=== PATIENT | female | born 1975 | race Caucasian/White ===

== ENCOUNTER 2023-09-13 09:07 | Outpatient (CLI) | payer OTHER, SELFPAY ==
--- NOTE | 2023-09-13 09:15 | CRLHL7_ITS ---
For Patients: As a result of the Century Cures Act, medical imaging exams and procedure reports are released immediately into your electronic medical record. You may view this report before your referring provider. If you have questions, please contact your health care provider. BILATERAL SCREENING MAMMOGRAM WITH COMPUTER-AIDED DETECTION AND TOMOSYNTHESIS TECHNIQUE: CC and MLO views were obtained. These mammographic images have been obtained using full-field digital technique. These mammographic images were interpreted with the benefit of computer-aided detection. Breast Tomosynthesis was used in this interpretation. COMPARISON FILM: 08/22/22, 08/18/21, 07/23/20. FINDINGS: There are scattered areas of fibroglandular density. IMPRESSION: There is no radiographic evidence for malignancy. ASSESSMENT: BI-RADS Category 1: Negative RECOMMENDATION: Routine screening mammogram in 1 year. A lay language report of this examination will be provided to the patient. Emanuel Castano M.D. Diagnostic Radiologist [email or web address] SP/Dictated by: Emanuel Castano MD @ 09/13/2023 10:17:00 AM (Electronically Signed)
== END 2023-09-13 09:08 | disposition home or self-care (01) ==
LOC: MAMMO 09:08
PROVIDERS: Visit Provider Obstetrics & Gynecology
DX: Z12.31 Encounter for screening mammogram for malignant neoplasm of breast (principal)
CPT/HCPCS: 77063; 77067

== ENCOUNTER 2024-12-05 13:20 | Outpatient (CLI) | payer BC, SELFPAY ==
--- NOTE | 2024-12-05 13:40 | CRLHL7_ITS ---
For Patients: As a result of the Century Cures Act, medical imaging exams and procedure reports are released immediately into your electronic medical record. You may view this report before your referring provider. If you have questions, please contact your health care provider. INDICATION: BILATERAL SCREENING MAMMOGRAM, ASYMPTOMATIC 49 Y/O FEMALE COMPARISON: 09/13/2023, 06/23/2022, 06/08/2020 TECHNIQUE: Digital mammogram in CC and MLO projections including computer-aided detection (CAD) and tomosynthesis. BREAST COMPOSITION: There are scattered areas of fibroglandular density. FINDINGS: No suspicious findings. ASSESSMENT: BI-RADS 1 Negative RECOMMENDATION: Annual screening mammogram. A lay language report of this examination will be provided to the patient. Dictated by: Emanuel Castano MD @ 12/08/2024 11:46:15 (Electronically Signed)
== END 2024-12-05 13:21 | disposition home or self-care (01) ==
LOC: MAMMO 13:21
PROVIDERS: PCP Family Medicine; Visit Provider Obstetrics & Gynecology
DX: Z12.31 Encounter for screening mammogram for malignant neoplasm of breast (principal)
CPT/HCPCS: 77063; 77067

== ENCOUNTER 2024-12-25 06:49 | Emergency (ER) | payer BC, SELFPAY ==
--- OUTSIDE RECORDS SUMMARY | 2024-12-25 06:51 | XMS_ITS | Clinical Summary ---
Author Organization [email or web address] Address [address] [place] [id number] Care Team Providers Care Tribal Delegate Name Role Phone Henry Swenson MD Primary Care Provider [phone] Allergies Active Allergy Reactions Criticality Noted Date Comments Ampicillin Hives 05/22/2005 Medications cetirizine (ZYRTEC) 10 mg tablet Take 1 Tablet (10 mg) by mouth once daily. 0 1 Active albuterol HFA 90 mcg/actuation inhalerIndication s:Mild intermittent asthma without complication (HC) Inhale 2 Puffs by mouth every 4 hours if needed for Shortness Of Breath or Wheezing (cough). 18 g 5 Active budesonide-formot Levi 160-4.5 mcg/actuation (160-4.5 mcg each actuation) inhalerIndication s:Mild intermittent asthma without complication (HC) Inhale 2 Puffs by mouth two times daily. 10.2 g 11 5 Active fluticasone (50 mcg per actuation) nasal solution (FLONASE)Indicati ons:Non-seasonal allergic rhinitis, unspecified trigger Inhale 2 Sprays into affected nostril(s) once daily. 48 g 4 5 Active Active Problems Problem Noted Date Diagnosed Date Pap smear for cervical cancer screening 10/11/19 23 Overview (10/10/2022): 1998 Coleman 11/2002 Coleman 05/2022 UNS/HPV negative 08/2022 NIL Plan: pap/hpv due 05/2027 Lactose intolerance 07/27/2020 Depression with anxiety 05/14/2016 Tinnitus of left ear 10/02/2013 ALLERGIES 10/06/2002 Mild intermittent asthma without complication Overview (02/07/2011): Triggered allergies in the fall, exercise and illness Resolved Problems Problem Noted Date Diagnosed Date Resolved Date PMDD (premenstrual dysphoric disorder) 01/29/2009 12/18/2009 Normal delivery 11/29/2007 12/05/2007 Sterilization 11/29/2007 12/05/2007 Supervision of other normal 07/26/2007 12/05/2007 SINUSITIS 07/07/2003 07/21/2003 GENITAL HERPES 06/24/2002 05/21/2006 Overview (05/21/2006): Just initial outbreak in 2004 DEPRESSIVE DISORDER, MAJOR RECUR, UNSPECIFIED 03/14/20 02 01/13/2009 Encounters Date Type Department Care Team Description 12/05/2024 Orders Only [facility] Scanner 1 scan: (1-Ord) [place], 12/05/2024 10/14/2024 Telephone [facility] [address] [place] [address] Henry Swenson MD mammo due from Last 3 Months Immunizations Immunization Administration Dates Next Due AMB Influenza, IIV3 (Age >=3 years)(Flu Clinic Only) 12/30/2008,02/18/2008 COVID-19 vaccine (Moderna 100mcg/0.5mL) PF, MDV 07/01/2020 Hepatitis B, Unspecified 05/11/2000 Influenza A (H1N1), Inactivated 03/02/2009 Influenza A (H1N1), Inactiva ana (Age >=3 Years) 03/02/2009 Influenza, CCIIV3 (Age >=6 M O) (Egg Free) 01/30/2024 Influenza, IIV3 (Age 6-35 mos) 3,02/23/2012,02/07/2011,2009 Influenza, IIV3 (Age >=3 years) 01/25/20 13,02/23/2012,02/07/2011,2008,02/18/2008,02/15/2007,02/13/2006,1 05/07/2004,01/15/2004,01/20/2003, 002 Influenza, IIV4 01/20/2021, 8,01/29/2017,2015,01/05/2014 Influenza, IIV4 (=>6mos) MDV 12/19/2019 Influenza, Injectable, Mdck, Quadrivalent, W/preservative 01/31/2023,02/01/2022 Pneumococcal Conj 20-valent (Prevnar 20) 06/14/2022 Pneumococcal Poly,23-Valent (Pneumovax) 02/01/2000,08/25/1999 Td, Preservative Free (age > = 7 Years) 11/06/2016 Tdap 05/21/2006 Family History Medical History Relation Name Comments Good Health Brother Oldest Good Health Daughter 1 Yeimy Older Good Health Daughter 2 Jessica Second Heart Disease Father Hypertension Father Other Maternal Grandfather drowned Arrhythmia Maternal Grandmother Diabetes Maternal Grandmother late on set Cancer-breast Mother Hypertension Mother Diabetes Paternal Aunt x 2 Two Diabetes Paternal Grandfather Heart attack Paternal Grandfather around 62 Diabetes Paternal Uncle Good Health Sister Second Relation Name Status Comments Brother Alive Daughter 1 Yeimy Alive Daughter 2 Jessica Alive Father Alive Maternal Grandfather (Age ?) Maternal Grandmother Mother Alive Paternal Aunt x 2 Paternal Grandfather (Age 45 yrs ) Paternal Grandmother Paternal Uncle Sister Alive Social History Tobacco Use Types Packs/Day Years Used Date Smoking Tobacco: Former Cigarettes 2 000 - 09/23/1998 Smokeless Tobacco: Never Tobacco Cessation:Counseling Given: Not Answered Alcohol Use Standard Drinks/Week Comments Not Currently 0 (1 standard drink = 0.6 oz pure alcohol) Alcoholic Drinks/day: 0 since 1998. PHQ-2 Answer Date Recorded PHQ-2 TOTAL SCORE 0 07/14/2024 Social Connections Answer Date Recorded Do you often feel lonely or isolated from those around you? 0 03/03/2024 Financial Resource Strain Answer Date R ecorded Difficulty of Paying Living Expenses 3 03/03/2024 Difficulty of Paying Living Expenses Not on file 03/03/2024 Food Insecurity Answer Date Recorded Do you worry your food will run out before you are able to buy more? 1 03/03/2024 Transportation Needs Answer Date Record ed Does lack of transportation keep you from medica l appointments? 1 03/03/2024 Does lack of transportation keep you from work, meetings or getting things that you need? 1 03/03/2024 Housing Stability Answer Date Recorded What is your housing situation today? 1 03/03/2024 Utilities Answer Date Recorded Do you have trouble paying f or utilities (for example, heat, electricity, water, phone)? 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 Not on file Not on fi le Obstetrics History Para Term AB IAB SAB Ectopic Multiple Livin g Live Births 2 2 2 0 0 0 0 0 0 2 2 Date Outcome GA Total Labor Labor/2nd/3rd Weight Sex Type Anes PTL Jossie A1 A5 Name Clin 08/16 Term 40w 0d 5h 00m/ 3.52 kg (7 lb 12 oz) F Vag Living Elissa 11/28 Term 39w 0d 4h 00m/ 3.81 kg (8 lb 6.5 oz) F Vag Living Jessica Last Filed Vital Signs Vital Sign Reading Time Taken Comments Blood Pressure 108/86 07/14/2024 9:32 AM CDT Pulse 75 07/14/2024 9:32 AM CDT Temperature 35.9 C (96.7 F) 06/14/2022 2:02 PM CDT Respiratory Rate 14 07/14/2024 9:32 AM CDT Oxygen Saturation 99% 07/14/2024 9:32 AM CDT Inhaled Oxygen Concentration - - Weight 65.3 kg (144 lb) 07/14/2024 9:32 AM CDT Height 167.6 cm (5' 6) 07/14/2024 9:32 AM CDT Body Mass Index 23.24 07/14/2024 9:32 AM CDT Plan of Treatment Health Maintenance Due Date Last Done Comments Hepatitis B series for 19+ (2 of 3 - 19+ 3-dose series) 06/08/2000 05/11/2000 Influenza Vaccine (#1) 2024 4, 01/31/2023, 02/01/2022, Additional history exists BMI (ht and wt on same day) for age 18+ 07/14/2025 07/14/2024, 06/14/2022, 02/01/2021, Additional history exists Depression screening for age 12+ 07/14/2025 07/14/2024, 07/14/2024, 06/14/2022, Additional history exists Mammogram for age 45-75 12/05/2025 12/06/19 25, 09/13/2023, 08/22/2022, Additional history exists Tetanus booster 11/06/2026 11/06/2016, 05/21/2006 Lipids for age 45-75 06/15/2027 06/14/2022, 05/01/2014, 01/13/2009, Additional history exists Pap test for age 21-65 09/06/2027 , 06/14/2022, 07/04/2017, Additional history exists Colonoscopy through age 75 09/14/2031 09/13/2021 RSV vaccine for adults or (1 - 1-dose 75+ series) 12/03/2050 HIV for age 15-65 Completed 05/24/2007 Hepatitis C screening for age 18-79 Completed 06/14/2022 Pneumococcal series for age 6-49 Aged Out 06/14/2022, 02/01/2000, 08/25/1999 No longer eligible based on patient's age to complete this topic COVID-19 vaccine series Completed 01/30/20 24, 01/31/2023, 02/01/2022, Additional history exists Procedures Procedure Name Priority Date/Time Associated Diagnosis Comments SCAN-MAMMOGRAPHY REPORT 12/05/2024 12:00 AM CDT RECORD KEEPER THIN PREP PAP SCREEN IMAGED Routine 09/05/2022 10:47 AM CDT Cervical cancer screening LC HCV ANTIBODY RFX TO QUANT PCR Routine 06/14/2022 1:55 PM CDT Need for hepatitis C screening test LC LIPID PANEL AND CHOL/HDL RATIO Routine 06/14/2022 1:55 PM CDT Screening for lipid disorders SCAN-COLONOSCOPY 09/13/2021 12:0 0 AM CDT ANTI HIV 1/2 Routine 05/24/2007 2:24 PM LABORATORY TECH Supervision Of Other Normal (Hc) from Last 3 Months or Most Recently Relevant to Health Maintenance Results * SCAN-MAMMOGRAPHY REPORT (12/05/2024 12:00 AM CDT) Anatomical Region Laterality Modality Other us Scanner OTHER Final Result * RECORD KEEPER THIN PREP PAP SCREEN IMAGED (09/05/2022 10:47 AM CDT) Case Report Gynecologic Cytology Report Case: [id number] Authorizing Provider: Henry Swenson MD Collected: 09/05/2022 1047 Ordering Location: [facility] Received: 09/05/2022 1125 First Screen: Shu Gill Specimen: RECORD KEEPER ThinPrep Vial Screening, Cervical 10/10/2022 12:10 PM CDT [facility] INTERPRETATION/ RESULT NEGATIVE FOR INTRAEPITHELIAL LESION OR MALIGNANCY (NIL) (none) 10/10/2022 12:10 PM CDT [facility]-C ENTRAL LABORATORY at 1210 CDT SPECIMEN ADEQUACY Satisfactory for evaluation Endocervical component present 10/10/2022 12:10 PM CDT [id number] [employer]-C ENTRAL LABORATORY HPV REQUEST HPV not requested 2022 12:10 PM CDT [id number] [employer] [facility]-C ENTRAL LABORATORY Date of LMP 08/24/2022 10/10/2022 12:10 PM CDT [facility] ENTRAL LABORATORY Last Pap Date 06/14/22 10/10/2022 12:10 PM CDT [id number]-C ENTRAL LABORATORY Last Pap Result UNS 12:10 PM CDT [id number]-C ENTRAL LABORATORY Abnormal Pap or Coleman Bx in last 5 years No 10/10/2022 12:10 PM CDT [facility]TN LABORATORY Menstrual Status Regular Periods 10/10/2022 12:10 PM CDT [facility] Coleman Bx Done Today No 10/10/2022 12:10 PM CDT [facility] Additional Information None given 10/10/2022 12:10 PM CDT [facility] ENTRAL LABORATORY Comment: Cytology is screened at [facility] - [address], [place] [address] and [facility] - [address], [place] [address] and Laboratory - [address] [place] [address] Interpreted at [facility] - [address] [place] [address] Automated Review Successful 10/10/2022 12:10 PM CDT [facility] Comment:Specimen processed s uccessfully by automated emergency room clerk device, Thin[employer] Imaging System, [employer] Note The pap test is a screening technique, not a diagnostic procedure. It is used primarily to screen for squamous cancers and precursor lesions. Published studies have shown that it is subject to both false negative and false positive results. The pap test should not be used as the sole means to diagnose or exclude pre-malignant and malignant lesions. 10/10/2022 12:10 PM CDT [facility] Other (Cervical) Non-Blood / Unknown 09/05/2022 10:47 AM CDT 09/05/2022 11:25 AM CDT us Henry Swenson MD PATHOLOGY/CYTOLOGY Final Result [facility] [address] [place] [address], [place] * LC LIPID PANEL AND CHOL/HDL RATIO (06/14/2022 1:55 PM CDT) Cholesterol, Total 191 100 - 199 mg/dL 06/16/2022 9:10 AM CDT [facility]) Triglycerides 82 0 - 149 mg/dL 06/16/2022 9:10 AM CDT [facility] ([facility]) HDL Cholesterol 94 >39 mg/dL 9:10 AM CDT [facility] VLDL Cholesterol Guy 15 5 - 40 mg/dL 06/16/2022 9:10 AM CDT [facility] LDL Chol Calc (NIH) 82 0 - 99 mg/dL 06/16/2022 9:10 AM CDT [facility] T. Chol/HDL Ratio 2.0 0.0 - 4.4 ratio 06/16/2022 9:10 AM CDT [facility] ([facility] Comment: T. Chol/HDL Ratio Men Women 1/2 Avg.Risk 3.4 3.3 Avg.Risk 5.0 4.4 2X Avg.Risk 9.6 7.1 3X Avg.Risk 23.4 11.0 Blood BLOOD SPECIMEN / Unknown Venipuncture / Unknown 06/14/2022 1:55 PM CDT 06/14/2022 1:55 PM CDT Narrative [facility] ([facility]) - 06/16/2022 9:10 AM CDT Performed at: [address] [place] [id number] Platform Software Engineer: Markos Whitten MD, Phone: [phone] us Henry Swenson MD SEND OUTS Final Res ult [facility] ([facility]) [facility] [place] [address], * LC HCV ANTIBODY RFX TO QUANT PCR (06/14/2022 1:55 PM CDT) Pathologist [facility] HCV Ab Non Reactive Non Reactive 06/16/2022 2:09 PM CDT [facility] ([facility]) Blood BLOOD SPECIMEN / Unknown Venipuncture / Unknown 06/14/2022 1:55 PM CDT 06/14/2022 1:55 PM CDT Narrative [facility] ([facility]) - 06/16/2022 2:09 PM CDT Performed at: - [address] [id number] Platform Software Engineer: Markos Whitten MD, Phone: [phone] us Henry Swenson MD LABORATORY Final Res ult [facility] ([facility]) [facility] [place] [address], * SCAN-COLONOSCOPY (09/13/2021 12:00 AM CDT) us Scanner OTHER Final Result * ANTI HIV 1/2 (05/24/2007 2:24 PM LABORATORY TECH) ANTI HIV 1/2 Non-reacti ve [facility] Blood specimen (specimen) BLOOD SPECIMEN / Unknown 05/24/2007 2:24 PM LABORATORY TECH 05/24/2007 2:22 PM LABORATORY TECH us Cris Kelley MD SEND OUTS Fi nal Result [facility] INTERNAL ZIP [id number] [place] [phone] from Last 3 Months or Most Recently Relevant to Health Maintenance Insurance [employer] OF NON-VA-ITS Advance Directives * Full Code (Latest Code Status on File) Date Activated Date Inactivated Comments 11/29/2007 4:53 AM 12/01/2007 2:23 PM * Full Code Date Activated Date Inactivated Comments 11/29/2007 12:06 AM 11/29/2007 4:53 AM * Full Code Date Activated Date Inactivated Comments 11/28/2007 9:18 PM 11/29/2007 12:06 AM * Full Code Date Activated Date Inactivated Comments 11/28/2007 11:06 AM 11/28/2007 9:18 PM Care Teams Tribal Delegate Relationship Specialty Start Date End Date Henry Swenson MD [address] [place] [address] PCP - General Family Practice 06/14/22"
[2024-12-25 06:52] VITALS: BP 133/78; PULSE 88; RESP 16; TEMP 37.1; O2SAT 98; BMI 22.7
--- NOTE | 2024-12-25 07:29 | ED_ITS ---
HPI - General Adult General Chief complaint: Abdominal Pain <Alona Patel MD - Last Filed: 12/27/24 11:00> Stated complaint: lower back and abdomen pain <Alona Patel MD - Last Filed: 12/27/24 11:00> Time Seen by Provider: 12/25/24 07:08 <Alona Patel MD - Last Filed: 12/27/24 11:00> Source: patient <Alona Patel MD - Last Filed: 12/27/24 11:00> Mode of arrival: ambulatory <Alona Patel MD - Last Filed: 12/27/24 11:00> Limitations: no limitations <Alona Patel MD - Last Filed: 12/27/24 11:00> History of Present Illness HPI narrative: 49-year-old female presents to the emergency department with a 24 hour history of pain in the left lower quadrant of the abdomen radiating to the left lower back. Pain worse with position changes, lying down and sitting up. Seems better with standing and moving around. No dysuria, no hematuria, no gynecological changes. No diarrhea. No fever. No trauma or injury. She does see her chiropractor regularly, reported that she was a little out of alignment yesterday and had an adjustment, it did not improve her symptoms. She has not tried taking any Tylenol, ibuprofen or other interventions. Reports that she had a screening colonoscopy 4 years ago. Believes it was through us but I can not find any records with that. Tells me that it was otherwise normal though. No prior history of similar symptoms. No nausea or vomiting. Does not drink alcohol. Nonsmoker. No prior history of abdominal surgeries besides a tubal ligation. Denies other recent systemic symptoms. Past medical history is notable for exercise-induced asthma, uses albuterol daily prophylactically before exercise. Allergy to amoxicillin, no long-term medications besides the albuterol. Nonsmoker. ROS is notable for the abdominal symptoms only, otherwise denies times 12 systems. <Alona Patel MD - Last Filed: 12/27/24 11:00> Related Data Allergies/adverse reactions: Allergies Allergy/AdvReac Type Severity Reaction Status Date / Time amoxicillin Allergy Intermediate Rash Verified 12/25/24 09:01 <Alona Patel MD - Last Filed: 12/27/24 11:00> Exam Const: Vital Signs, click to edit/add: Vital Signs - 24 hr 12/25/24 06:52 12/25/24 08:58 Temperature 98.7 F Pulse Rate [Left P ulse Oximeter] 88 78 Respiratory Rate 16 16 Blood Pressure [Ri ght Upper Arm] 133/78 133/88 Pulse Oximetry 98 98 Oxygen Delivery Me thod Room Air Room Air <Alona Patel MD - Last Filed: 12/27/24 11:00> Vital Signs, click to edit/add: Vital Signs - 24 hr 12/25/24 06:52 12/25/24 08:58 Temperature 98.7 F Pulse Rate [Left P ulse Oximeter] 88 78 Respiratory Rate 16 16 Blood Pressure [Ri ght Upper Arm] 133/78 133/88 Pulse Oximetry 98 98 Oxygen Delivery Me thod Room Air Room Air <Mateus Alba DO - Last Filed: 12/25/24 09:59> Documenting provider has reviewed patient's vital signs: yes <Alona Patel MD - Last Filed: 12/27/24 11:00> Common normals: no apparent distress and alert <Alona Patel MD - Last Filed: 12/27/24 11:00> General appearance: cooperative, comfortable and well kempt <Alona Patel MD - Last Filed: 12/27/24 11:00> HENMT: Common normals: normocephalic, moist oral mucous membranes and oropharynx normal <Alona Patel MD - Last Filed: 12/27/24 11:00> Head and scalp: normocephalic <Alona Patel MD - Last Filed: 12/27/24 11:00> Face and sinus: normal facial exam <MD Luanne Knight Last Filed: 12/27/24 11:00> Mouth: oral and palatal mucosa normal <MD Luanne Knight Last Filed: 12/27/24 11:00> Throat: posterior oropharynx normal <MD Luanne Knight Last Filed: 12/27/24 11:00> Eye: Common normals: conjunctivae normal <MD Luanne Knight Last Filed: 12/27/24 11:00> General eye: normal appearance of both eyes <MD Luanne Knight Last Filed: 12/27/24 11:00> Conjunctiva: conjunctiva(e) normal <MD Luanne Knight Last Filed: 12/27/24 11:00> Neck & C-Spine: Common normals: full ROM <MD Luanne Knight Last Filed: 12/27/24 11:00> General: normal visual inspection <MD Luanne Knight Last Filed: 12/27/24 11:00> Resp: Common normals: normal respiratory effort and clear to auscultation bilaterally <MD Luanne Knight Last Filed: 12/27/24 11:00> Effort & inspection: able to speak in complete sentences <MD Luanne Knight Last Filed: 12/27/24 11:00> Auscultation: clear to auscultation bilaterally <MD Luanne Knight Last Filed: 12/27/24 11:00> Cardio: Common normals: regular rate, regular rhythm, S1 normal heart sound, S2 normal heart sound and no murmurs <MD Luanne Knight Last Filed: 12/27/24 11:00> Rate: regular rate <MD Luanne Knight Last Filed: 12/27/24 11:00> Rhythm: regular rhythm <MD Luanne Knight Last Filed: 12/27/24 11:00> Heart sounds: S1 normal and S2 normal <MD Luanne Knight Last Filed: 12/27/24 11:00> GI: Common normals: Normal to inspection, nondistended, normoactive bowel sounds present, soft to palpation, no hepatosplenomegaly and no masses <MD Luanne Knight Last Filed: 12/27/24 11:00> Palpation: soft and no hepatosplenomegaly <MD Luanne Knight Last Filed: 12/27/24 11:00> Other: Mildly tender to palpation of left lower quadrant, worse with position change <Alona Patel MD - Last Filed: 12/27/24 11:00> : Common normals: no CVA tenderness <MD Luanne Knight Last Filed: 12/27/24 11:00> Bladder/kidney exam: no CVA tenderness <Alona Patel MD - Last Filed: 12/27/24 11:00> Back & Pelvis: Common normals: no CVA tenderness <Alona Patel MD - Last Filed: 12/27/24 11:00> Extremity: Common normals: normal to inspection and normal capillary refill <MD Luanne Knight Last Filed: 12/27/24 11:00> Neuro: Common normals: moves all extremities <MD Luanne Knight Last Filed: 12/27/24 11:00> Sensorium/orientation: alert <MD Luanne Knight Last Filed: 12/27/24 11:00> Speech: speech normal <MD Luanne Knight Last Filed: 12/27/24 11:00> Motor exam: strength 5/5 throughout <MD Luanne Knight Last Filed: 12/27/24 11:00> Psych: Common normals: speech normal <MD Luanne Knight Last Filed: 12/27/24 11:00> Appearance: well kempt <MD Luanne Knight Last Filed: 12/27/24 11:00> Attitude: engaged <MD Luanne Knight Last Filed: 12/27/24 11:00> Activity/motor behavior: appropriate eye contact <MD Luanne Knight Last Filed: 12/27/24 11:00> Speech: normal speech <MD Luanne Knight Last Filed: 12/27/24 11:00> Insight: insight good <MD Luanne Knight Last Filed: 12/27/24 11:00> Judgement: judgment good <Alona Patel MD - Last Filed: 12/27/24 11:00> Skin: Common normals: no rashes or lesions noted <Alona Patel MD - Last Filed: 12/27/24 11:00> General skin exam: no rashes or lesions noted <Alona Patel MD - Last Filed: 12/27/24 11:00> Course Course ED Course: 49-year-old female with left lower quadrant and low back pain suspicious for diverticulitis but can not exclude colitis, constipation, musculoskeletal etiology, ovarian pathology, kidney stone, urinary infection, pancreatitis, jessica gst others. Will place peripheral IV, typical abdominal labs. Urinalysis, test. Will wait on urine results before ordering CT. If blood present, CT without contrast otherwise plan for with contrast. <Alona Patel MD - Last Filed: 12/27/24 11:00> Vital Signs Vital signs: Initial Vital Signs Temperature 98.7 F 12/25/24 06:52 Temperature Source Temporal Artery Scan 12/25/24 06:52 Pulse Rate 88 12/25/24 06:52 Pulse Rhythm Regular 12/25/24 06:52 Respiratory Rate 16 12/25/24 06:52 Blood Pressure 133/78 12/25/24 06:52 Blood Pressure Mean 96 12/25/24 06:52 Blood Pressure Position Sitting 12/25/24 06:52 Pulse Oximetry 98 12/25/24 06:52 Oxygen Delivery Method Room Air 12/25/24 06:52 Vital Signs Temperature 98.7 F 12/25/24 06:52 Pulse Rate 88 12/25/24 06:52 Respiratory Rate 16 12/25/24 06:52 Blood Pressure 133/78 12/25/24 06:52 Pulse Oximetry 98 12/25/24 06:52 Oxygen Delivery Method Room Air 12/25/24 06:52 Temperature 98.7 F 12/25/24 06:52 Pulse Rate 78 12/25/24 08:58 Respiratory Rate 16 12/25/24 08:58 Blood Pressure 133/88 12/25/24 08:58 Pulse Oximetry 98 12/25/24 08:58 Oxygen Delivery Method Room Air 12/25/24 08:58 <Alona Patel MD - Last Filed: 12/27/24 11:00> Initial Vital Signs Temperature 98.7 F 12/25/24 06:52 Temperature Source Temporal Artery Scan 12/25/24 06:52 Pulse Rate 88 12/25/24 06:52 Pulse Rhythm Regular 12/25/24 06:52 Respiratory Rate 16 12/25/24 06:52 Blood Pressure 133/78 12/25/24 06:52 Blood Pressure Mean 96 12/25/24 06:52 Blood Pressure Position Sitting 12/25/24 06:52 Pulse Oximetry 98 12/25/24 06:52 Oxygen Delivery Method Room Air 12/25/24 06:52 Vital Signs Temperature 98.7 F 12/25/24 06:52 Pulse Rate 88 12/25/24 06:52 Respiratory Rate 16 12/25/24 06:52 Blood Pressure 133/78 12/25/24 06:52 Pulse Oximetry 98 12/25/24 06:52 Oxygen Delivery Method Room Air 12/25/24 06:52 Temperature 98.7 F 12/25/24 06:52 Pulse Rate 78 12/25/24 08:58 Respiratory Rate 16 12/25/24 08:58 Blood Pressure 133/88 12/25/24 08:58 Pulse Oximetry 98 12/25/24 08:58 Oxygen Delivery Method Room Air 12/25/24 08:58 <Mateus Alba DO - Last Filed: 12/25/24 09:59> Medical Decision Making MDM Narrative Medical decision making narrative: Patient was signed out to me pending CT scan. CT scan returned showing a large amount of stool within the colon otherwise no intra-abdominal abnormalities. She does have a left ovarian cyst measuring about 2.7 cm along with a hypodense cervical lesion measuring 3.5 cm. The ovarian cyst appears too small to be causing a an ovarian torsion. This cervical lesion radiology does recommend to have a follow-up ultrasound. This can likely be done outpatient. She is not having any pain a pelvic region all pain abdomen and back. Patient is agreeable to this plan. Some of her pain could be related to constipation. She states she will start stool softeners. <Mateus Alba DO - Last Filed: 12/25/24 09:59> Lab Data Lab results reviewed: Yes I reviewed the patient's lab results <Alona Patel MD - Last Filed: 12/27/24 11:00> Lab results narrative: No significant leukocytosis. Hemoglobin normal. Electrolytes reassuring. C-reactive protein mildly elevated. Urinalysis does have a trace amount of blood but no other overwhelming signs of infection. Will proceed with CT. <Alona Patel MD - Last Filed: 12/27/24 11:00> Labs: Lab Results 12/25/24 12/25/24 Range/Units 07:42 07:46 WBC 10.37 (4.50-11.00) K/uL RBC 4.64 (4.00-5.20) m/uL Hgb 14.1 (12.0-16.0) gm/dL Hct 42.9 (33.0-51.0) % MCV 93 (80-100) fL MCH 30 (26-34) pg MCHC 33 (32-36) gm/dL RDW Coeff of Shu 12.3 (11.5-15.5) % Plt Count 238 (140-440) K/uL Neut % (Auto) 80.1 H (42.0-72.0) % Lymph % (Auto) 9.5 L (20-44) % [place] % (Auto) 8.7 (0.0-11.0) % Eos % (Auto) 0.7 (0.0-7.0) % Baso % (Auto) 0.2 (0.0-3.0) % Neut # (Auto) 8.30 H (1.7-7.0) K/uL Lymph # (Auto) 1.00 (0.90-2.90) K/uL [place] # (Auto) 0.90 (0.00-0.90) K/UL Eos # (Auto) 0.07 (0.00-0.50) K/uL Baso # (Auto) 0.02 (0.00-0.30) K/uL Abs Immat Gran (auto) 0.08 (0.00-0.30) K/uL Imm/Tot Granulo (auto) 0.8 % Sodium 138 (135-149) mmol/L Potassium 3.9 (3.6-5.1) mmol/L Chloride 100 (96-114) mmol/L Carbon Dioxide 30 (20-32) mmol/L Anion Gap 8 (7-15) mEq/L BUN 11 (5-24) mg/dL Creatinine 0.7 (0.5-1.5) mg/dL Estimated Creat Clear 91.01 Estimated GFR 106 ml/min Glucose 100 (60-115) mg/dL Calcium 8.8 (8.4-10.6) mg/dL Total Bilirubin 1.0 (0.1-1.5) mg/dL AST 40 H (12-35) U/L ALT 16 (4-35) U/L Alkaline Phosphatase 86 (40-150) U/L C-Reactive Protein 2.9 H (0.5-1.0) mg/dL Total Protein 8.3 (6.0-8.3) g/dL Albumin 4.5 (3.3-5.0) g/dL Lipase 73 (23-300) U/L Urine Color Yellow (Yellow) Urine Appearance Clear (Clear) Urine pH 6.5 (5.0-8.5) Ur Specific [place] 1.015 (1.000-1.030) Urine Protein Negative (Negative) Urine Glucose (UA) Negative (Negative) Urine Ketones Negative (Negative) Urine Blood Trace-intact A (Negative) Urine Nitrite Negative (Negative) Urine Bilirubin Negative (Negative) Urine Urobilinogen 0.2 (0.2-1.0) Ur Leukocyte Esterase Trace A (Negative) Urine RBC 2-5 A (0-2) Urine WBC 2-5 (0-5) Ur Squamous Epith Cells Moderate A (None-Few) Urine Bacteria None (None) Urine HCG, Qual Negative (Negative) <Alona Patel MD - Last Filed: 12/27/24 11:00> Lab Results 12/25/24 12/25/24 Range/Units 07:42 07:46 WBC 10.37 (4.50-11.00) K/uL RBC 4.64 (4.00-5.20) m/uL Hgb 14.1 (12.0-16.0) gm/dL Hct 42.9 (33.0-51.0) % MCV 93 (80-100) fL MCH 30 (26-34) pg MCHC 33 (32-36) gm/dL RDW Coeff of Shu 12.3 (11.5-15.5) % Plt Count 238 (140-440) K/uL Neut % (Auto) 80.1 H (42.0-72.0) % Lymph % (Auto) 9.5 L (20-44) % [place] % (Auto) 8.7 (0.0-11.0) % Eos % (Auto) 0.7 (0.0-7.0) % Baso % (Auto) 0.2 (0.0-3.0) % Neut # (Auto) 8.30 H (1.7-7.0) K/uL Lymph # (Auto) 1.00 (0.90-2.90) K/uL [place] # (Auto) 0.90 (0.00-0.90) K/UL Eos # (Auto) 0.07 (0.00-0.50) K/uL Baso # (Auto) 0.02 (0.00-0.30) K/uL Abs Immat Gran (auto) 0.08 (0.00-0.30) K/uL Imm/Tot Granulo (auto) 0.8 % Sodium 138 (135-149) mmol/L Potassium 3.9 (3.6-5.1) mmol/L Chloride 100 (96-114) mmol/L Carbon Dioxide 30 (20-32) mmol/L Anion Gap 8 (7-15) mEq/L BUN 11 (5-24) mg/dL Creatinine 0.7 (0.5-1.5) mg/dL Estimated Creat Clear 91.01 Estimated GFR 106 ml/min Glucose 100 (60-115) mg/dL Calcium 8.8 (8.4-10.6) mg/dL Total Bilirubin 1.0 (0.1-1.5) mg/dL AST 40 H (12-35) U/L ALT 16 (4-35) U/L Alkaline Phosphatase 86 (40-150) U/L C-Reactive Protein 2.9 H (0.5-1.0) mg/dL Total Protein 8.3 (6.0-8.3) g/dL Albumin 4.5 (3.3-5.0) g/dL Lipase 73 (23-300) U/L Urine Color Yellow (Yellow) Urine Appearance Clear (Clear) Urine pH 6.5 (5.0-8.5) Ur Specific [place] 1.015 (1.000-1.030) Urine Protein Negative (Negative) Urine Glucose (UA) Negative (Negative) Urine Ketones Negative (Negative) Urine Blood Trace-intact A (Negative) Urine Nitrite Negative (Negative) Urine Bilirubin Negative (Negative) Urine Urobilinogen 0.2 (0.2-1.0) Ur Leukocyte Esterase Trace A (Negative) Urine RBC 2-5 A (0-2) Urine WBC 2-5 (0-5) Ur Squamous Epith Cells Moderate A (None-Few) Urine Bacteria None (None) Urine HCG, Qual Negative (Negative) <Mateus Alba DO - Last Filed: 12/25/24 09:59> Imaging Data CT scan abdomen and pelvis: Attestation: I have reviewed the pertinent imaging results. <Mateus Alba DO - Last Filed: 12/25/24 09:59> Radiologist's impression: 1. No dilated loops of large or small intestine. Large amount of stool within the colon. 2. Left ovarian cyst measuring 2.7 centimeters. Hypodense cervical lesion measuring 3.5 centimeters. Suspect this represents a cluster of nabothian cysts or degenerating cervical fibroid, however pelvic ultrasound suggested for further characterization. Please note that all CT scans at this facility use dose modulation, iterative reconstruction, and/or weight-based dosing when appropriate to reduce radiation dose to as low as reasonably achievable. Dictated by Remington Mei MD @ 12/25/2024 9:32:01 AM <Mateus Alba DO - Last Filed: 12/25/24 09:59> Discharge Plan Discharge Clinical Impression: Lesion of cervix Constipation Qualifiers: Constipation type: unspecified constipation type Qualified Code(s): K59.00 - Constipation, unspecified <Alona Patel MD - Last Filed: 12/27/24 11:00> Patient Disposition: Home, Self-Care <Alona Patel MD - Last Filed: 12/27/24 11:00> Condition: Stable <Alona Patel MD - Last Filed: 12/27/24 11:00> Instructions: Constipation (DC) <Alona Patel MD - Last Filed: 12/27/24 11:00> Additional Instructions: Your pain may be related to constipation. I do recommend you seen stool softeners including MiraLax, senna, docusate until you begun to have multiple large normal bowel movements. I did speak to Dr. Underwood, her clearing distribution clerk will try to get you an ultrasound prior to your appointment next week. Return to emergency department for new or worsening symptoms <Alona Patel MD - Last Filed: 12/27/24 11:00> Follow Up/Referrals: Henry Swenson MD [Primary Care Provider, Family Practice] <Alona Patel MD - Last Filed: 12/27/24 11:00> Stand Alone Forms: MyHealth Info Instructions <Alona Patel MD - Last Filed: 12/27/24 11:00>
[2024-12-25 07:58] LABS: Appearance Urine Clear (Clear)
[2024-12-25 08:01] LABS: Ur HCG Qualitative* Negative (Negative)
[2024-12-25 08:06] LABS: Hematocrit* 42.9 % (33.0-51.0); Hemoglobin* 14.1 gm/dL (12.0-16.0); Immature Granulocytes Abs Auto 0.08 K/uL (0.00-0.30); Immature Granulocytes Pct Auto 0.8 %; Mean Corpuscular HGB Conc 33 gm/dL (32-36); Mean Corpuscular Hemoglobin 30 pg (26-34); Mean Corpuscular Volume 93 fL (80-100); RDW Coefficient of Variation % 12.3 % (11.5-15.5); Red Blood Count* 4.64 m/uL (4.00-5.20); White Blood Count* 10.37 K/uL (4.50-11.00)
[2024-12-25 08:16] LABS: Lymphocytes Absolute Auto 1.00 K/uL (0.90-2.90); Slide Review Reflex No
--- NOTE | 2024-12-25 08:17 | CRLHL7_ITS ---
For Patients: As a result of the Century Cures Act, medical imaging exams and procedure reports are released immediately into your electronic medical record. You may view this report before your referring provider. If you have questions, please contact your health care provider. INDICATION: Left lower quadrant pain TECHNIQUE: Axial images were obtained from the diaphragm to the pubic symphysis. Reformats were obtained in the coronal and sagittal plane. IV Contrast: 69 cc Isovue 370 Oral Contrast: None COMPARISON: None. FINDINGS: Lower chest: Minimal basilar discoid atelectasis. Liver: Unremarkable. Normal in size and attenuation. No masses. Gallbladder and bile ducts: Unremarkable. No stones or inflammation. No biliary dilatation. Spleen: Unremarkable. Normal in size without mass. Pancreas: Unremarkable. No mass or inflammation. Adrenal glands: Unremarkable. No nodules. Kidneys: Symmetric renal enhancement without hydronephrosis. Mild scarring left kidney. Vasculature: Unremarkable. GI tract: The stomach is unremarkable. Small bowel decompressed. Normal appendix. Large intestine is decompressed with a large amount of stool within the colon. Pelvis: Left ovarian cyst measuring up to 2.7 centimeters. Cervical hypodense lesion measuring up to 3.5 centimeters. Bones: Unremarkable for age. IMPRESSION: 1. No dilated loops of large or small intestine. Large amount of stool within the colon. 2. Left ovarian cyst measuring 2.7 centimeters. Hypodense cervical lesion measuring 3.5 centimeters. Suspect this represents a cluster of nabothian cysts or degenerating cervical fibroid, however pelvic ultrasound suggested for further characterization. Please note that all CT scans at this facility use dose modulation, iterative reconstruction, and/or weight-based dosing when appropriate to reduce radiation dose to as low as reasonably achievable. Dictated by Remington Mei MD @ 12/25/2024 9:32:01 AM (Electronically Signed)
[2024-12-25 08:23] LABS: Albumin* 4.5 g/dL (3.3-5.0); Chloride* 100 mmol/L (96-114); Sodium* 138 mmol/L (135-149)
[2024-12-25 08:24] LABS: Potassium* 3.9 mmol/L (3.6-5.1)
[2024-12-25 08:26] LABS: Alanine Aminotransferase* 16 U/L (4-35); Alkaline Phosphatase* 86 U/L (40-150); Anion Gap 8 mEq/L (7-15); Aspartate Amino Transferase* 40 U/L (12-35); Bilirubin Total* 1.0 mg/dL (0.1-1.5); Blood Urea Nitrogen* 11 mg/dL (5-24); Carbon Dioxide* 30 mmol/L (20-32); Creatinine* 0.7 mg/dL (0.5-1.5); Est. Creatinine Clearance* 91.01; Estimated Glomerular Filt Rate 106 ml/min; Total Protein* 8.3 g/dL (6.0-8.3)
[2024-12-25 08:27] LABS: Calcium* 8.8 mg/dL (8.4-10.6); Glucose* 100 mg/dL (60-115)
[2024-12-25 08:58] VITALS: BP 133/88; PULSE 78; RESP 16; O2SAT 98
== END 2024-12-25 10:09 | disposition home or self-care (01) ==
PROVIDERS: Emergency Provider Family Medicine; PCP Family Medicine
DX: N88.9 Noninflammatory disorder of cervix uteri, unspecified (principal); K59.00 Constipation, unspecified
CPT/HCPCS: 36415; 74177; 80053; 81001; 81003; 81025; 83690; 85025; 86140; 87086; 99284; 99285; Q9967

== ENCOUNTER 2024-12-26 14:23 | Outpatient (CLI) | payer BC, SELFPAY ==
--- NOTE | 2024-12-26 15:00 | CRLHL7_ITS ---
For Patients: As a result of the Century Cures Act, medical imaging exams and procedure reports are released immediately into your electronic medical record. You may view this report before your referring provider. If you have questions, please contact your health care provider. INDICATION: cervical Nabothian cysts vs degenerating cervical fibroid per CT COMPARISON: CT 12/25/2024 TECHNIQUE: 2D mueller-scale and color Doppler images were acquired of the pelvis using a transabdominal and transvaginal approach. Transvaginal imaging performed to better visualize the endometrial stripe and ovaries. FINDINGS: Multiple cervical nabothian cysts are present. There also is a solid-appearing structure associated with the cervix measuring 1.3 x 1.4 x 1.4 cm. Uterus measures 8.5 cm in length by 4.8 cm in AP diameter by 6.0 cm in transverse dimension. The endometrial lining measures 8.9 mm in composite thickness. The right ovary measures 2.2 x 1.9 x 1.9 cm in size and the left ovary measures 4.0 x 1.7 x 2.2 cm. The ovaries demonstrate normal arterial and venous blood flow on color Doppler analysis. Circumscribed fluid posterior to the uterus measures 2.1 x 1.1 x 2.7 cm. IMPRESSION: Multiple cervical nabothian cysts are present. There is also a cervical fibroid measuring 1.4 cm. Endometrial thickness 8.9 millimeters. No endometrial fluid. Circumscribed posterior pelvic free fluid measures 2.7 cm. Dictated by Emanuel Castano MD @ 12/26/2024 4:12:01 PM (Electronically Signed)
== END 2024-12-26 14:24 | disposition home or self-care (01) ==
LOC: US 14:24
PROVIDERS: PCP Family Medicine; Visit Provider Obstetrics & Gynecology
DX: N88.9 Noninflammatory disorder of cervix uteri, unspecified (principal); N83.299 Other ovarian cyst, unspecified side; D25.9 Leiomyoma of uterus, unspecified; R93.89 Abnormal findings on diagnostic imaging of other specified body structures
CPT/HCPCS: 76830; 76856